=== PATIENT | female | born 1975 | race Caucasian/White ===

== ENCOUNTER 2021-12-10 | Outpatient (REF) | payer OTHER, SELFPAY ==
--- NOTE | 2021-12-10 | PFT_ITS ---
Forced vital capacity 97%, FEV1 100%, FEV1/FVC ratio is 83. [id number] 101% and MVV 115%. Post bronchodilator therapy, there is no significant change. Total lung capacity 87% and residual volume 69%. Diffusion capacity 97% CONCLUSION: Normal pulmonary function tests. No evidence of obstructive or restrictive pulmonary disorder. MD IRINEO Ma/JESU / [id number]
== END 2021-12-10 00:01 | disposition home or self-care (01) ==
LOC: HO.RESP
PROVIDERS: PCP Internal Medicine; Visit Provider Internal Medicine
DX: C81.90 Hodgkin lymphoma, unspecified, unspecified site (principal)
CPT/HCPCS: 94060; 94727; 94729